=== PATIENT | male | born 1990 | race Caucasian/White ===

== ENCOUNTER 2019-05-19 21:08 | Emergency (ER) | payer BC ==
[2019-05-19 21:20] VITALS: BP 143/83
--- NOTE | 2019-05-19 21:35 | UC ---
Abdominal Pain Male HPI - HPI Summary HPI Summary: c/o abd pain and night sweats with nause x1 day. Assoc. w/ feeling weak and runny nose. denies cough, rash, tick bites, drinking etoh, or any drug withdrawals. nothing makes it better/worse. has not eaten in approx. 1 day. drinking fluids normally. - History of Current Complaint Chief Complaint: UCGeneralIllness Stated Complaint: FEVER Time Seen by Provider: 05/19/19 21:11 Hx Obtained From: Patient Pain Intensity: 7 Pain Scale Used: 0-10 Numeric Associated Signs And Symptoms: Positive: Decreased Appetite, Nausea. Negative: Fever, Cough, Chest Pain, Dizzy - Allergies/Home Medications Allergies/Adverse Reactions: Allergies Allergy/AdvReac Type Severity Reaction Status Date / Time cefaclor [From [facility]] Allergy Unknown Verified 05/19/19 21:20 Reaction Details Home Medications: Home Medications Calcium Carbonate [Tums] 1 tab PO DAILY PRN 05/19/19 [History Confirmed 05/19/19 ] Ibuprofen 200 mg PO ONCE PRN 05/19/19 [History Confirmed 05/19/19] PMH/Surg Hx/FS Hx/Imm Hx - Surgical History Surgical History: None - Family History Known Family History: Positive: None Family History: negative dm/htn/cardiac per emr - Social History Alcohol Use: Weekly Alcohol Amount: a few a week Substance Use Type: None Smoking Status (MU): Light Every Day Tobacco Smoker Type: Pipe Amount Used/How Often: 5-10/cig/day Review of Systems All Other Systems Reviewed And Are Negative: Yes Constitutional: Positive: Fatigue. Negative: Fever Skin: Negative: Rash ENT: Negative: Sore Throat Gastrointestinal: Positive: Abdominal Pain, Nausea, Other - decr appetite. Negative: Vomiting, Diarrhea Genitourinary: Negative: Dysuria Musculoskeletal: Negative: Arthralgia, Edema, Myalgia Neurological: Positive: Weakness. Negative: Headache Physical Exam Triage Information Reviewed: Yes Appearance: Well-Appearing Vital Signs: Initial Vital Signs Temp 97.7 F 05/19/19 21:14 Pulse 88 05/19/19 21:14 Resp 18 05/19/19 21:14 BP 143/83 05/19/19 21:14 Pulse Ox 97 05/19/19 21:14 Eyes: Positive: Conjunctiva Clear ENT: Positive: Pharyngeal erythema, TMs normal, Uvula midline Neck: Positive: Supple, Nontender, No Lymphadenopathy Respiratory Exam: Normal Cardiovascular Exam: Normal Abdomen Description: Positive: Nontender, Soft. Negative: CVA Tenderness (R), CVA Tenderness (L), Distended, Guarding Neurological: Positive: Alert Skin: Negative: Rashes Abd Pain Male Course/Dx - Course Course Of Treatment: Abd pain x1 day w/ nausea and decr. appetite assoc. w/ weakness. On exam throat was red but rapid strep neg. vitals good. No acute abdomen on exam. Not assoc. w/ etoh or drugs. Could be viral etiology and we discussed red flags of when to go to the ED. increase fluids and rest for management. - Differential Dx/Clinical Impression Differential Diagnosis/HQI/PQRI: Other Provider Diagnosis: Abdominal pain Discharge ED - Sign-Out/Discharge Documenting (check all that apply): Patient Departure All imaging exams completed and their final reports reviewed: No Studies - Discharge Plan Condition: Good Disposition: HOME Patient Education Materials: Acute Nausea and Vomiting (ED) Forms: *Work Release Referrals: No Primary Care Phys,NOPCP [Primary Care Provider] - Additional Instructions: If you are the same or worse tomorrow please consider going to emergency room. I think you do have a virus so eat crackers, toast and drink fluids often but in small amounts. - Billing Disposition and Condition Condition: GOOD Disposition: Home
[2019-05-19 21:40] LABS: Influenza A Molecular NEGATIVE (Negative); Influenza B Molecular NEGATIVE (Negative)
== END 2019-05-19 21:57 | disposition home or self-care (01) ==
LOC: UCEAST 21:08
DX: R10.9 Unspecified abdominal pain (principal); R11.0 Nausea; R53.83 Other fatigue; R09.89 Other specified symptoms and signs involving the circulatory and respiratory systems; R53.1 Weakness; R61 Generalized hyperhidrosis; R63.8 Other symptoms and signs concerning food and fluid intake; F17.290 Nicotine dependence, other tobacco product, uncomplicated; Z88.1 Allergy status to other antibiotic agents
CPT/HCPCS: 99201; G0463

== ENCOUNTER 2019-07-26 16:52 | Emergency (ER) | payer SELFPAY ==
[2019-07-26 17:21] VITALS: BP 129/80
--- NOTE | 2019-07-26 18:04 | UC ---
Knee Pain HPI - HPI Summary HPI Summary: 28-year-old male presenting with left knee pain 4 days. 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 Notes medial swelling and bruising. Is able to ambulate but it causes sharp throbbing pain. Denies pain at rest. Denies numbness and tingling. Denies decreased range of motion. Denies prior injury to the knee. - History of Current Complaint Chief Complaint: UCLowerExtremity Stated Complaint: LEFT KNEE INJURY Hx Obtained From: Patient Pain Intensity: 4 Pain Scale Used: 0-10 Numeric - Allergies/Home Medications Allergies/Adverse Reactions: Allergies Allergy/AdvReac Type Severity Reaction Status Date / Time [facility] Allergy Unknown Verified 07/26/19 17:16 Reaction Details Home Medications: Home Medications Omeprazole 20 mg PO DAILY 07/26/19 [History Confirmed 07/26/19] PMH/Surg Hx/FS Hx/Imm Hx - Surgical History Surgical History: None - Family History Known Family History: Positive: None, Non-Contributory Family History: negative dm/htn/cardiac per emr - Social History Alcohol Use: Weekly Alcohol Amount: a few a week Substance Use Type: None Smoking Status (MU): Light Every Day Tobacco Smoker Type: Pipe Amount Used/How Often: 5-10/cig/day Review of Systems All Other Systems Reviewed And Are Negative: No Constitutional: Positive: Negative Skin: Positive: Bruising - L knee Respiratory: Positive: Negative Cardiovascular: Positive: Negative Gastrointestinal: Positive: Negative Musculoskeletal: Positive: Arthralgia - L knee, Edema. Negative: Decreased ROM Neurological: Positive: Negative. Negative: Paresthesia, Numbness Physical Exam - Summary Physical Exam Summary: Vital Signs Reviewed: Yes A+Ox3, no distress Eyes: Conjunctiva Clear ENT: Hearing grossly normal neck: supple Respiratory: Positive: No respiratory distress, No accessory muscle use Cardiovascular: skin color reflect adequate perfusion Musculoskeletal Exam: SABA x 4 without difficulty, +TTP of medial left knee, no edema, no erythema or ecchymosis, ROM intact, strength intact, able to bear weight, sensation grossly intact DP/PT pulses 2+ Neurological: Positive: Alert Psychological: Positive: age appropriate behavior Skin: Positive: no rash, no ecchymosis Vital Signs: Initial Vital Signs Temp 99.8 F 07/26/19 17:17 Pulse 77 07/26/19 17:17 Resp 14 07/26/19 17:17 BP 129/80 07/26/19 17:17 Pulse Ox 99 07/26/19 17:17 Diagnostics - Radiology L knee Radiology Interpretation Completed By: ED Physician Summary of Radiographic Findings: neg fx Knee Pain Course/Dx - Course Course Of Treatment: Discussed initial negative read of x-ray and informed the patient that the final report to be obtained in the morning and he'll be notified if any abnormalities. Patient received Filipe wrap and crutches and instructed to continue his interactive and in. I provided patient with referral for orthopedics if pain does not improve. Patient was understanding and agreed with the treatment plan. - Differential Dx/Diagnosis Differential Diagnosis/HQI/PQRI: Contusion, Fracture (Closed), Sprain, Strain Provider Diagnosis: Left medial knee pain Discharge ED - Sign-Out/Discharge Documenting (check all that apply): Patient Departure All imaging exams completed and their final reports reviewed: No - Discharge Plan Condition: Stable Disposition: HOME Patient Education Materials: Knee Pain (ED) Forms: *Work Release Referrals: Milind Oliva MD [Medical Doctor] - If Needed Additional Instructions: As discussed, your radiograph was reviewed by the provider that treated you tonight. It will be read by a radiologist tomorrow morning. If there is a finding other than that discussed with you today, you will receive a call from a care provider. Rest, ice, elevate, and use the filipe wrap to help alleviate pain symptoms. Use over the counter pain medications as directed for pain relief. Refrain from strenuous physical activity until pain has resolved. Follow up with the orthopedic referral listed below if pain does not improve. - Billing Disposition and Condition Condition: STABLE Disposition: Home - Attestation Statements Provider Attestation: This patient was not seen by me. I was available for consult. Chart reviewed. SANDRA
--- NOTE | 2019-07-27 10:24 | UC ---
- Progress Note Progress Note: XR wet read correct Course/Dx - Diagnoses Provider Diagnoses: Left medial knee pain Discharge ED - Sign-Out/Discharge Documenting (check all that apply): Post-Discharge Follow Up All imaging exams completed and their final reports reviewed: Yes - Discharge Plan Condition: Stable Disposition: HOME Patient Education Materials: Knee Pain (ED) Forms: *Work Release Referrals: Milind Oliva MD [Medical Doctor] - If Needed Additional Instructions: As discussed, your radiograph was reviewed by the provider that treated you tonight. It will be read by a radiologist tomorrow morning. If there is a finding other than that discussed with you today, you will receive a call from a care provider. Rest, ice, elevate, and use the tessa wrap to help alleviate pain symptoms. Use over the counter pain medications as directed for pain relief. Refrain from strenuous physical activity until pain has resolved. Follow up with the orthopedic referral listed below if pain does not improve. - Billing Disposition and Condition Condition: STABLE Disposition: Home
== END 2019-07-26 19:25 | disposition home or self-care (01) ==
LOC: UCEAST 16:52
DX: M25.562 Pain in left knee (principal); W51.XXXA Accidental striking against or bumped into by another person, initial encounter; Y92.9 Unspecified place or not applicable; Y99.0 Civilian activity done for income or pay; Z88.1 Allergy status to other antibiotic agents; F17.290 Nicotine dependence, other tobacco product, uncomplicated
CPT/HCPCS: 99213; G0463

== ENCOUNTER 2019-08-02 20:14 | Emergency (ER) | payer SELFPAY ==
[2019-08-02 20:41] VITALS: BP 154/82
--- NOTE | 2019-08-02 20:55 | UC ---
Knee Pain HPI - HPI Summary HPI Summary: The patient is a 28-year-old male who injured his left knee at work greater than a week ago. He was seen here and had x-rays which were negative. He did not follow-up with the orthopedist he was referred to. He presents here stating his symptoms are not better and he still cannot work. He is walking with a limp. 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 He denies any prior history of left knee injury. He took ibuprofen for one day and then stopped. - History of Current Complaint Chief Complaint: UCLowerExtremity Stated Complaint: KNEE INJURY Time Seen by Provider: 08/02/19 20:36 Hx Obtained From: Patient Onset/Duration: Sudden Onset, Lasting Days Severity Initially: Moderate Severity Currently: Moderate Pain Intensity: 8 Pain Scale Used: 0-10 Numeric Character: Aching, Throbbing, Spasmodic Aggravating Factor(s): Movement, Weight Bearing Alleviating Factor(s): Rest Associated Signs And Symptoms: Positive: Swelling Able to Bear Weight: Yes Legs: 1 - tender/swollen - Allergies/Home Medications Allergies/Adverse Reactions: Allergies Allergy/AdvReac Type Severity Reaction Status Date / Time cefaclor [From [facility]] Allergy Unknown Verified 08/02/19 20:41 Reaction Details Home Medications: Home Medications Calcium Carbonate CHEW TAB* [Tums*] 2 tab PO DAILY 08/02/19 [History Confirmed 08/02/19] PMH/Surg Hx/FS Hx/Imm Hx Previously Healthy: Yes - Surgical History Surgical History: None - Family History Known Family History: Positive: Non-Contributory Family History: negative dm/htn/cardiac per emr - Social History Alcohol Use: Weekly Alcohol Amount: a few a week Substance Use Type: None Smoking Status (MU): Light Every Day Tobacco Smoker Type: Pipe Amount Used/How Often: 5-10/cig/day Review of Systems All Other Systems Reviewed And Are Negative: Yes Constitutional: Positive: Negative Skin: Positive: Negative Eyes: Positive: Negative ENT: Positive: Negative Respiratory: Positive: Negative Cardiovascular: Positive: Negative Gastrointestinal: Positive: Negative Genitourinary: Positive: Negative Motor: Positive: Negative Neurovascular: Positive: Negative Musculoskeletal: Positive: Arthralgia - left knee Neurological/Mental Status: Positive: Negative Physical Exam Triage Information Reviewed: Yes Appearance: Well-Appearing, No Pain Distress, Well-Nourished Vital Signs: Initial Vital Signs Temp 98 F 08/02/19 20:35 Pulse 90 08/02/19 20:35 Resp 16 08/02/19 20:35 BP 154/82 08/02/19 20:35 Pulse Ox 99 08/02/19 20:35 Vital Signs Reviewed: Yes Eyes: Positive: Conjunctiva Clear ENT: Positive: Hearing grossly normal, Uvula midline. Negative: Nasal congestion, Nasal drainage, Tonsillar swelling, Tonsillar exudate, Dental tenderness, Sinus tenderness Neck: Positive: Supple, Nontender Respiratory: Positive: Lungs clear, Normal breath sounds, No respiratory distress, No accessory muscle use Cardiovascular: Positive: RRR, No Murmur Musculoskeletal: Positive: Other: - see image/stable joint/tender superior patella and quad tendon Neurological: Positive: Alert Psychological Exam: Normal Skin Exam: Normal Knee Pain Course/Dx - Differential Dx/Diagnosis Provider Diagnosis: Contusion of left knee, Suprapatellar bursitis of left knee Discharge ED - Sign-Out/Discharge Documenting (check all that apply): Patient Departure All imaging exams completed and their final reports reviewed: No Studies - Discharge Plan Condition: Stable Disposition: HOME Patient Education Materials: Knee Pain (ED) Forms: *Work Release Referrals: Joseluis Montes MD [Medical Doctor] - As Soon As Possible Bhaskar Flores MD [Medical Doctor] - As Soon As Possible Additional Instructions: ice twice daily you need to call either the orthopedist or occupation doc tomorrow to make a follow up appt - Billing Disposition and Condition Condition: STABLE Disposition: Home
== END 2019-08-02 21:13 | disposition home or self-care (01) ==
LOC: UCEAST 20:14
DX: S80.02XA Contusion of left knee, initial encounter (principal); F17.290 Nicotine dependence, other tobacco product, uncomplicated; M70.52 Other bursitis of knee, left knee; Z88.1 Allergy status to other antibiotic agents; X58.XXXA Exposure to other specified factors, initial encounter; Y92.9 Unspecified place or not applicable; Y99.0 Civilian activity done for income or pay
CPT/HCPCS: 99211; G0463